=== PATIENT | male | born 1995 ===

== ENCOUNTER 2019-11-16 20:34 | Emergency (ER) | payer SELFPAY ==
[~2019-11-16] VITALS: Ht 175.3 cm; Wt 85.0 kg
--- NOTE | 2019-11-16 20:55 | NUR ---
SZ PRECAUTIONS IN PLACE AT THIS TIME
--- NOTE | 2019-11-16 20:57 | NUR ---
REPORT FROM MICHAEL RDZ
--- NOTE | 2019-11-16 20:57 | NUR ---
REPORT TO GUNNAR
[2019-11-16 21:08] VITALS: BP 138/93
--- NOTE | 2019-11-16 21:09 | NUR ---
PT TO CT
[2019-11-16 21:10] LABS: BASOPHILS # (AUTO) 0.04 x10^3/uL (0-0.1); BASOPHILS % (AUTO) 0 % (0-1); EOSINOPHILS # (AUTO) 0.51 x10^3/uL (0-0.4); EOSINOPHILS % (AUTO) 5 % (1-7); LYMPHOCYTES % (AUTO) 24 % (22-44); MD NO; MEAN CORPUSCULAR HEMOGLOBIN 29.6 pg (27.5-34.5); MEAN CORPUSCULAR HGB CONC 33.8 g/dL (33.2-36.2); MEAN CORPUSCULAR VOLUME 87.6 fL (81-97); MEAN PLATELET VOLUME 7.8 fL (7.4-10.4); MONOCYTES % (AUTO) 7 % (2-9); NEUTROPHILS # (AUTO) 7.05 x10^3/uL (1.8-6.8); NEUTROPHILS % (AUTO) 64 % (42-75); PLATELET COUNT 301 x10^3/uL (130-400); RED BLOOD COUNT 6.16 x10^6/uL (4.38-5.82); RED CELL DISTRIBUTION WIDTH 12.5 % (9.4-14.8)
--- NOTE | 2019-11-16 21:14 | NUR ---
PT BACK FROM CT, RESTING ON GURNEY GUARDS AT BEDSIDE FOR SAFETY
[2019-11-16 21:22] LABS: ALBUMIN 4.3 g/dL (3.4-5.0); ANION GAP 6 mmol/L (5-15); CALCIUM 9.2 mg/dL (8.5-10.1); CHLORIDE 109 mmol/L (98-107); CREATININE 0.94 mg/dL (0.7-1.3)
[2019-11-16 21:23] LABS: SALICYLATE LEVEL < 1.7 mg/dL (2.8-20.0)
--- NOTE | 2019-11-16 21:48 | NUR ---
PT EDUCATED ON NEED FOR URINE SAMPLE
--- NOTE | 2019-11-16 21:56 | NUR ---
URINE WALKED TO LAB PT RESTING ON CHANEL PEREZ
[2019-11-16 22:17] LABS: AMPHETAMINE SCREEN, URINE Negative (Negative); BARBITURATE SCREEN, URINE Negative (Negative); BENZODIAZEPINE SCREEN, URINE Negative (Negative); CANNABINOID SCREEN, URINE Negative (Negative); COCAINE SCREEN, URINE Negative (Negative); METHADONE SCREEN, URINE Negative (Negative); OPIATE SCREEN, URINE Negative (Negative)
--- NOTE | 2019-11-16 22:20 | NUR ---
ALL RESULTS BACK AT THIS TIME CHART UP FOR RECHECK
== END 2019-11-17 05:02 | disposition home or self-care (01) ==
LOC: ED 11-17 04:19
DX: G40.409 Other generalized epilepsy and epileptic syndromes, not intractable, without status epilepticus (principal); R11.10 Vomiting, unspecified
CPT/HCPCS: 36415; 70450; 80048; 80307; 82040; 85025; 93005; 99285

== ENCOUNTER 2020-04-25 22:39 | Emergency (ER) | payer OTHER ==
[~2020-04-25] VITALS: Ht 177.8 cm; Wt 83.7 kg
[2020-04-25 22:41] VITALS: BP 155/94
[2020-04-25] MEDS ORDERED: OMEP20TA62 PO (22:46)
[2020-04-25] MEDS ORDERED: MAALOX/HYOSCYAMINE/LIDOCAINE 45 ML BTL ONE (23:09)
[2020-04-25] MEDS ORDERED: MAALOX/HYOSCYAMINE/LIDOCAINE 45 ML BTL PO ONE (23:30)
== END 2020-04-25 23:34 | disposition home or self-care (01) ==
LOC: ED 23:09
DX: K21.9 Gastro-esophageal reflux disease without esophagitis (principal); R09.89 Other specified symptoms and signs involving the circulatory and respiratory systems; J02.9 Acute pharyngitis, unspecified; R07.89 Other chest pain; I49.1 Atrial premature depolarization
CPT/HCPCS: 71045; 93005; 99283

== ENCOUNTER 2020-04-28 00:43 | Emergency (ER) | payer OTHER ==
[~2020-04-28] VITALS: Ht 177.8 cm; Wt 77.0 kg
[~2020-04-28 00:43] MED LIST: OMEP20TA62 PO
[2020-04-28 00:45] VITALS: BP 152/79
[2020-04-28] MEDS ORDERED: ONDANSETRON 2MG/ML, 2ML ONE (01:28)
[2020-04-28] MEDS ORDERED: MAALOX/HYOSCYAMINE/LIDOCAINE 45 ML BTL ONE (01:28)
[2020-04-28] MEDS ORDERED: MAALOX/HYOSCYAMINE/LIDOCAINE 45 ML BTL PO ONE (01:30)
[2020-04-28] MEDS ORDERED: SODIUM CHLORIDE 0.9% 1,000ML IVBOLUS ONE (01:30)
[2020-04-28] MEDS ORDERED: ONDANSETRON 2MG/ML, 2ML IVPush ONE (01:30)
[2020-04-28 01:47] LABS: BASOPHILS # (AUTO) 0.03 x10^3/uL (0-0.1); BASOPHILS % (AUTO) 0 % (0-1); EOSINOPHILS # (AUTO) 0.22 x10^3/uL (0-0.4); EOSINOPHILS % (AUTO) 2 % (1-7); LYMPHOCYTES # (AUTO) 2.95 x10^3/uL (1-3.4); LYMPHOCYTES % (AUTO) 29 % (22-44); MD NO; MEAN CORPUSCULAR HEMOGLOBIN 29.6 pg (27.5-34.5); MEAN CORPUSCULAR HGB CONC 33.2 g/dL (33.2-36.2); MEAN CORPUSCULAR VOLUME 89.1 fL (81-97); MEAN PLATELET VOLUME 7.8 fL (7.4-10.4); MONOCYTES # (AUTO) 0.67 x10^3/uL (0.2-0.8); MONOCYTES % (AUTO) 7 % (2-9); NEUTROPHILS # (AUTO) 6.29 x10^3/uL (1.8-6.8); NEUTROPHILS % (AUTO) 62 % (42-75); PLATELET COUNT 284 x10^3/uL (130-400); RED CELL DISTRIBUTION WIDTH 12.3 % (9.4-14.8)
[2020-04-28 01:57] LABS: ALANINE AMINOTRANSFERASE 21 U/L (12-78); ALBUMIN 4.3 g/dL (3.4-5.0); ANION GAP 7 mmol/L (5-15); CALCIUM 9.7 mg/dL (8.5-10.1); CHLORIDE 106 mmol/L (98-107); CREATININE 1.15 mg/dL (0.7-1.3)
[2020-04-28 01:59] LABS: ALKALINE PHOSPHATASE 87 U/L (45-117); BILIRUBIN,TOTAL 0.5 mg/dL (0.2-1.0); TOTAL PROTEIN 8.3 g/dL (6.4-8.2)
[2020-04-28] MEDS ORDERED: OMEPRAZOLE 20 MG CAPSULE.DR PO ONE (02:30)
[2020-04-28] MEDS ORDERED: FAMOTIDINE 20 MG TABLET PO ONE (02:30)
[2020-04-28] MEDS ORDERED: FAMOTIDINE 20 MG TABLET ONE (02:41)
[2020-04-28] MEDS ORDERED: OMEPRAZOLE 20 MG CAPSULE.DR ONE (02:42)
--- NOTE | 2020-04-28 02:54 | NUR ---
Patient/Caregiver given discharge instructions and they have confirmed that they understand the instructions. Patient ambulatory with steady gait in the custody of half-way guards
== END 2020-04-28 02:57 | disposition home or self-care (01) ==
LOC: ED 01:11
DX: K21.9 Gastro-esophageal reflux disease without esophagitis (principal); R55 Syncope and collapse; R11.2 Nausea with vomiting, unspecified; E86.0 Dehydration; R42 Dizziness and giddiness; R94.31 Abnormal electrocardiogram [ECG] [EKG]
CPT/HCPCS: 36415; 71045; 80053; 83690; 85025; 93005; 96361; 96374; 99285; J2405; J7030

== ENCOUNTER 2020-07-16 15:40 | Emergency (ER) | payer OTHER ==
[~2020-07-16] VITALS: Ht 177.8 cm; Wt 87.0 kg
--- NOTE | 2020-07-16 15:46 | NUR ---
PATIENT WALKED BACK WITH OFFICERS AT SIDE FOR CHIEF C/O ABD PAIN X1 WEEK AND BLACK STOOLS X1 DAY. PATIENT ALSO REPORTS N/V X 1 WEEK, DENIES FEVER. NO SIGNS OF ACUTE DISTRESS, CONNECTED TO [employer] ANALYST, CALL LIGHT WITHIN REACH. 2 OFFICERS AT BEDSIDE.
[2020-07-16] MEDS ORDERED: ONDANSETRON 2MG/ML, 2ML IVPush ONE (16:30)
[2020-07-16] MEDS ORDERED: MORPHINE SULFATE 4 MG/ML, 1ML IVPush PRN (16:30)
--- NOTE | 2020-07-16 16:30 | NUR ---
20 GAUGE IV STARTED LEFT AC. PATIENT AMBULATED TO BATHROOM FOR URINE SAMPLE WITH GUARD AT SIDE.
--- NOTE | 2020-07-16 16:39 | NUR ---
URINE COLLECTED AND SENT TO LAB.
[2020-07-16 16:41] LABS: BASOPHILS % (AUTO) 0 % (0-1); EOSINOPHILS % (AUTO) 4 % (1-7); LYMPHOCYTES % (AUTO) 31 % (22-44); MEAN CORPUSCULAR HEMOGLOBIN 29.9 pg (27.5-34.5); MEAN CORPUSCULAR HGB CONC 34.9 g/dL (33.2-36.2); MEAN PLATELET VOLUME 8.3 fL (7.4-10.4); MONOCYTES % (AUTO) 9 % (2-9); NEUTROPHILS % (AUTO) 56 % (42-75); PLATELET COUNT 265 x10^3/uL (130-400); RED BLOOD COUNT 5.98 x10^6/uL (4.38-5.82); RED CELL DISTRIBUTION WIDTH 12.9 % (9.4-14.8)
[2020-07-16 16:42] LABS: ALBUMIN 4.3 g/dL (3.4-5.0); ANION GAP 6 mmol/L (5-15); CALCIUM 9.4 mg/dL (8.5-10.1); CHLORIDE 107 mmol/L (98-107)
[2020-07-16 16:44] LABS: ALANINE AMINOTRANSFERASE 19 U/L (12-78); ALKALINE PHOSPHATASE 92 U/L (45-117); BILIRUBIN,TOTAL 0.8 mg/dL (0.2-1.0); CREATININE 1.11 mg/dL (0.7-1.3); TOTAL PROTEIN 8.5 g/dL (6.4-8.2)
[2020-07-16 16:48] LABS: MD NO
[2020-07-16 16:49] LABS: INTERNATIONAL NORMALIZED RATIO 1.08 (0.93-1.1); PROTHROMBIN TIME 11.4 Seconds (9.6-11.5)
--- NOTE | 2020-07-16 17:15 | NUR ---
PATIENT TO IMAGING.
[2020-07-16] MEDS ORDERED: OMNIPAQUE 350 MG/ML, 100ML BOTTLE ONE (17:21)
[2020-07-16] MEDS ORDERED: SODIUM CHLORIDE FLUSH 10ML SYR IVF ONE (17:30)
[2020-07-16 17:33] LABS: MICROSCOPIC NOT IND
[2020-07-16 18:20] VITALS: BP 131/75
--- NOTE | 2020-07-16 18:21 | NUR ---
Patient and guards given discharge instructions and they have confirmed that they understand the instructions. All questions answered. Patient ambulatory with steady gait, in custody from ED with 2 law enforcement officers.
== END 2020-07-16 18:22 | disposition home or self-care (01) ==
LOC: ED 18:17
DX: K29.50 Unspecified chronic gastritis without bleeding (principal); G89.29 Other chronic pain; R10.33 Periumbilical pain; R10.31 Right lower quadrant pain; R11.2 Nausea with vomiting, unspecified; K21.9 Gastro-esophageal reflux disease without esophagitis
CPT/HCPCS: 36415; 74177; 80053; 81003; 83690; 85025; 85610; 85730; 99285; Q9967

== ENCOUNTER 2020-11-01 23:02 | Emergency (ER) | payer OTHER ==
[~2020-11-01] VITALS: Ht 177.8 cm; Wt 85.0 kg
--- NOTE | 2020-11-01 23:35 | NUR ---
BIBFoster FROM [facility] EMERGENCY DEPARTMENT, PT WAS FOUND DOWN BY CELLMATE AFTER 1 MIN OF SEIZURE LIKE ACTIVITY. PT WAS UNRESPONSIVE WHEN EMS ARRIVED. PT DID WAKE UP A&0X4, PEARRLA, COMPLAINING OF NECK PAIN AND RIGHT FOREHEAD HEMATOMA. PT STATES HE HAS CHRONIC NECK PAIN. PT ARRIVES IN C-COLLAR AND IN SHACKLES WITH 2 GUARDS. PT HAS HX SZ, LAST ONE BEING 07/16/20 AND DOES NOT TAKE MEDICATIONS. 20 GAUGE PIV PLACED BY EMS IN LEFT AC. PT CONNECTED TO CARDIAC MONITORS.
[2020-11-01 23:39] LABS: ALBUMIN 4.6 g/dL (3.4-5.0); ANION GAP 10 mmol/L (5-15); CALCIUM 8.9 mg/dL (8.5-10.1); CHLORIDE 107 mmol/L (98-107); CREATININE 1.04 mg/dL (0.7-1.3)
[2020-11-01 23:41] LABS: BASOPHILS % (AUTO) 1 % (0-1); EOSINOPHILS % (AUTO) 3 % (1-7); LYMPHOCYTES % (AUTO) 27 % (22-44); MEAN CORPUSCULAR HGB CONC 34.9 g/dL (33.2-36.2); MEAN PLATELET VOLUME 8.5 fL (7.4-10.4); MONOCYTES % (AUTO) 8 % (2-9); NEUTROPHILS % (AUTO) 61 % (42-75); PLATELET COUNT 254 x10^3/uL (130-400); RED BLOOD COUNT 5.65 x10^6/uL (4.38-5.82); RED CELL DISTRIBUTION WIDTH 13.1 % (9.4-14.8)
[2020-11-01 23:44] LABS: MD NO
[2020-11-02] MEDS ORDERED: ONDANSETRON 2MG/ML, 2ML ONE (00:35)
--- NOTE | 2020-11-02 00:42 | NUR ---
PT NAUSEOUS, GIVEN ZOFRAN. PT STARTING TO OPEN EYES WIDER THEN ON ARRIVAL. X 2 GUARDS AT BEDSIDE
[2020-11-02] MEDS ORDERED: LEVETIRACETAM 1,000 MG in SODIUM CHLORIDE 0.9% 100 ML IV ONE (01:00)
[2020-11-02] MEDS ORDERED: ONDANSETRON 2MG/ML, 2ML IVPush ONE (01:00)
[2020-11-02 01:40] VITALS: BP 137/78
--- NOTE | 2020-11-02 01:43 | NUR ---
Melissa kendall in [facility] - 11/02/20 at 0143 by ASHLEE ADMITTING MD AT BEDSIDE
== END 2020-11-02 01:44 | disposition home or self-care (01) ==
LOC: ED 23:20
DX: R56.9 Unspecified convulsions (principal); R51.9 Headache, unspecified; K21.9 Gastro-esophageal reflux disease without esophagitis
CPT/HCPCS: 36415; 70450; 72125; 80048; 82040; 85025; 93005; 96365; 96375; 99285; J1953; J2405

== ENCOUNTER 2021-01-24 20:20 | Emergency (ER) | payer MEDICAID, OTHER ==
[~2021-01-24] VITALS: Ht 177.8 cm; Wt 84.0 kg
--- NOTE | 2021-01-24 20:29 | NUR ---
BIB FROM [facility]. PT C/O VOMITTNG X2 WEEKS, BLOOD IN VOMIT TODAY. INTERMITTENT CP X6 MONTHS, PAIN CONSTANT X3 DAYS. HAS BEEN TAKING PEPTO BISMAL PT CONNECTED TO MONITORING. 2 CORRECTIONAL OFFICERS AT BEDSIDE. PT SPITTING INTO EMESIS BAG. CALL LIGHT IN REACH. AWAITING ORDERS.
[2021-01-24] MEDS ORDERED: PROMETHAZINE 25 MG/ML, 1ML IM ONE (21:00)
[2021-01-24] MEDS ORDERED: PROMETHAZINE 25 MG/ML, 1ML ONE (21:02)
[2021-01-24 21:07] VITALS: BP 145/76
--- NOTE | 2021-01-24 21:07 | NUR ---
ASSISTANT NURSE MANAGER PER MAR.
[2021-01-24] MEDS ORDERED: FAMOTIDINE 20 MG TABLET ONE (21:19)
[2021-01-24] MEDS ORDERED: LEVETIRACETAM 500 MG TABLET ONE (21:20)
[2021-01-24] MEDS ORDERED: MAALOX/HYOSCYAMINE/LIDOCAINE 45 ML BTL ONE (21:20)
--- NOTE | 2021-01-24 21:20 | NUR ---
PT STATES NAUSEA FEELS BETTER.
--- NOTE | 2021-01-24 21:25 | NUR ---
MEDS ADMIN PER NOV. DEVOPS ENGINEER AT BEDSIDE.
[2021-01-24] MEDS ORDERED: MAALOX/HYOSCYAMINE/LIDOCAINE 45 ML BTL PO ONE (21:30)
[2021-01-24] MEDS ORDERED: FAMOTIDINE 20 MG TABLET PO ONE (21:30)
[2021-01-24] MEDS ORDERED: LEVETIRACETAM 500 MG TABLET PO ONE (21:30)
[2021-01-24 21:36] LABS: BASOPHILS % (AUTO) 0 % (0-1); EOSINOPHILS % (AUTO) 2 % (1-7); LYMPHOCYTES % (AUTO) 23 % (22-44); MEAN CORPUSCULAR HEMOGLOBIN 30.6 pg (27.5-34.5); MEAN CORPUSCULAR HGB CONC 35.4 g/dL (33.2-36.2); MEAN PLATELET VOLUME 8.2 fL (7.4-10.4); MONOCYTES % (AUTO) 9 % (2-9); NEUTROPHILS % (AUTO) 66 % (42-75); PLATELET COUNT 252 x10^3/uL (130-400); RED BLOOD COUNT 5.69 x10^6/uL (4.38-5.82)
[2021-01-24 21:39] LABS: MD NO
[2021-01-24 21:45] LABS: ALANINE AMINOTRANSFERASE 45 U/L (12-78); ALBUMIN 4.5 g/dL (3.4-5.0); ANION GAP 9 mmol/L (5-15); CALCIUM 9.3 mg/dL (8.5-10.1); CHLORIDE 109 mmol/L (98-107); CREATININE 0.82 mg/dL (0.7-1.3)
[2021-01-24 21:47] LABS: ALKALINE PHOSPHATASE 69 U/L (45-117); BILIRUBIN,TOTAL 0.7 mg/dL (0.2-1.0)
--- NOTE | 2021-01-24 21:50 | NUR ---
ALL RESULTS ARE BACK AT THIS TIME. CHART UP FOR RECHECK.
[2021-01-24] MEDS ORDERED: SUCRALFATE 1 GM TABLET PO ONE (22:30)
--- NOTE | 2021-01-24 22:37 | NUR ---
PUTTY WORKER PER MAR.
== END 2021-01-24 22:55 | disposition home or self-care (01) ==
LOC: ED 21:21
DX: K21.00 Gastro-esophageal reflux disease with esophagitis, without bleeding (principal); K29.00 Acute gastritis without bleeding; R11.2 Nausea with vomiting, unspecified; R07.89 Other chest pain; I10 Essential (primary) hypertension; Z87.891 Personal history of nicotine dependence
CPT/HCPCS: 36415; 80053; 83690; 85025; 96372; 99284; J2550